=== PATIENT | female | born 1970 | race Two or more races ===

== ENCOUNTER 2019-10-31 09:00 | Observation (INO) | payer OTHER ==
[2019-10-31] MEDS ORDERED: SODIUM CHLORIDE 1,000 ML IV STA (09:06)
--- NOTE | 2019-10-31 09:09 | PDOC ---
History of Present Illness - General Chief Complaint: Chest Pain Stated Complaint: SYNCOPE, CHEST PAIN Time Seen by Provider: 10/31/19 09:06 History Source: Patient, Significant Other Exam Limitations: No Limitations - History of Present Illness Initial Comments: 10/31/19 09:08 HPI 49 YOF with no sig medical history presenting with syncope. Pt states at about 8AM while getting read to eat breakfast at diner with her family, she had acute onset of feeling flushed, chills, nausea, dizziness/lightheadedness, chest pain with subsequent syncopal episode, witnessed by her significant other. She was passed out x 3-4 minutes, where her eyes "popped out" and hands clenched up and generalized shaking. She also had urinary incontinence. she subsequently woke up, feeling nausea and had an episode of NBNB emesis, felt very cold and lightheaded, and blurry vision - since resolving. pt admits she has had similar presentations, with about 6X this year - has not followed up with primary doctor or specialist, due to the covid 19 pandemic and was afraid of going to hospitals. She had a prior episode several months ago where she had a witnessed syncopal event by her daughter with similar presentation. Denies fever, chills, chest pain, SOB, palpitation, N, V, D, abdominal pain, bladder and bowel problems, focal weakness/paresthesias, leg swelling/pain, rash. No sick contacts or travel. No new changes in medications - only takes MTV. She denies any particular triggers/stressors or exacerbating factors. Allergies: PCN Past Medical History/None PSH: cholecystectomy, C sections, tummy tuck, gastric bypass Social history: Lives with family. +occ ETOH and tobacco use. Meds: as documented in EMR Family history: noncontributory PMD: Dr Garcia, in the [place] Review of systems Constitutional: no fevers or chills. +weakness HEENT: +dizziness/lightheadedness, blurry vision. no headache. No congestion. No vision loss, eye pain, tinnitis, or hearing disturbances. CVS: +cp or syncope. Resp: no sob. No cough. Gastrointestinal: no abdominal pain, diarrhea. +nausea and vomiting. Genitourinary: no dysuria, frequency or urgency, hematuria. +urinary incontinence. MUSCULOSKELETAL: No joint pain and swelling. No neck or back pain. SKIN: no redness or skin changes, no discharge, no rash. No wounds. Hematologic: no easy bruising/bleeding. NEUROLOGIC: No headache, altered mental status. No focal weakness, numbness or tingling. +dizziness, +LOC Psych: no anxiety or depression Allergic/Immunologic: +pcn allergies All other systems reviewed and negative, or as documented in HPI. Physical exam General: awake and alert, NAD. HEENT: NCAT, PERRL, EOMI, clear conjunctiva, anicteric, moist mucus membranes, clear oropharynx, no oral lesions.. Neck: neck supple, FROM Resp: CTAB, normal and even respirations, no respiratory distress CVS: RRR, no murmurs, 2+ peripheral pulses throughout, no peripheral edema Abdomen: soft, NTND, no rebound or guarding. Back: nontender, normal inspection and ROM MSK: no edema, ESTRADA x4, ROM intact. No clubbing or cyanosis. normal bulk and tone. Extremities: no calf tenderness Neuro: alert, oriented appropriately; no focal neurologic deficits, speech clear. 5/5 prox and distal strength in all extremities, no pronator drift. 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 SILT in all extremities. no ataxia or gait imbalanace. Psych: Calm and cooperative Skin: warm and well perfused, cap refill <2 sec, normal color, no rash or skin discoloration. 10/31/19 09:10 10/31/19 11:00 10/31/19 11:02 Past History - Medical History Allergies/Adverse Reactions: Allergies Allergy/AdvReac Type Severity Reaction Status Date / Time Penicillins Allergy Verified 10/31/19 09:04 Home Medications: Ambulatory Orders Multivit-Min/FA/Lycopen/Lutein [Centrum Silver Tablet] 1 each PO DAILY 10/31/19 Valacyclovir HCl [Valtrex -] 500 mg PO ASDIR 10/31/19 *Physical Exam - Vital Signs Last Vital Signs Temp Pulse Resp BP Pulse Ox 98 F 78 17 112/78 99 10/31/19 09:00 10/31/19 11:13 10/31/19 11:13 10/31/19 11:13 10/31/19 11:13 Heart Score/ECG Review #1 ECG reviewed & interpreted by me at: 09:15 General ECG Interpretation: Sinus Rhythm, Normal Intervals Compared to previous ECG there are: Previous ECG unavail 10/31/19 09:19 EKG sinus bradycardia 59 bpm, no interval abnormalities, narrow QRS, ST and T wave segments and morphology normal. Nonspecific T wave abnormalities with T wave inversion in lead III, precordial leads. No reciprocal depressions. No ST elevations ED Treatment Course - LABORATORY CBC & Chemistry Diagram: 10/31/19 09:20 10/31/19 09:20 - ADDITIONAL ORDERS Additional order review: Laboratory Results 10/31/19 10/31/19 10/31/19 09:20 09:20 09:20 PT with INR INR PTT (Actin FS) Sodium 139 Potassium 4.5 Chloride 104 Carbon Dioxide 25 Anion Gap 10 BUN 18.0 Creatinine 0.6 Est GFR (CKD-EPI)AfAm 122.32 Est GFR (CKD-EPI)NonAf 105.54 Random Glucose 79 Calcium 9.0 Magnesium 2.1 Total Bilirubin 0.9 AST 31 ALT 24 Alkaline Phosphatase 68 Creatine Kinase 139 Troponin I < 0.03 Total Protein 7.2 Albumin 4.0 TSH 3.97 H 10/31/19 09:20 PT with INR 12.7 INR 1.14 PTT (Actin FS) 25.1 L Sodium Potassium Chloride Carbon Dioxide Anion Gap BUN Creatinine Est GFR (CKD-EPI)AfAm Est GFR (CKD-EPI)NonAf Random Glucose Calcium Magnesium Total Bilirubin AST ALT Alkaline Phosphatase Creatine Kinase Troponin I Total Protein Albumin TSH 10/31/19 09:20 RBC 4.64 MCV 96.0 MCHC 34.3 RDW 13.4 MPV 9.2 Neutrophils % 63.3 Lymphocytes % 25.4 Monocytes % 8.0 Eosinophils % 2.1 Basophils % 1.2 - RADIOLOGY Radiology Studies Ordered: Category Date Time Status HEAD CT WITHOUT CONTRAST [CT] Stat CT Scan 10/31/19 09:09 Completed CHEST X-RAY PORTABLE* [RAD] Stat Radiology 10/31/19 09:32 Completed - Medications Given in the ED: ED Medications Discontinued Medications Generic Name Dose Route Start Last Admin Trade Name Freq PRN Reason Stop Dose Admin Sodium Chloride 1,000 mls @ 1,000 mls/hr 10/31/19 09:06 10/31/19 09:30 Normal Saline - IV 10/31/19 10:05 1,000 mls/hr ASDIR STA Administration Ondansetron HCl 4 mg 10/31/19 09:23 10/31/19 09:32 Zofran Injection IVPUSH 10/31/19 09:24 4 mg ONCE ONE Administration Medical Decision Making - Medical Decision Making 10/31/19 09:14 Vital Signs Temp Pulse Resp BP Pulse Ox 98 F 70 18 111/67 99 10/31/19 09:00 10/31/19 09:00 10/31/19 09:00 10/31/19 09:00 10/31/19 09:00 DDx syncope: considered interval abnormalities including short QTC or long QT syndrome, WPW, conduction abnormality, [place], ACS, myocardial infarc tion/ischemia, arrhythmia, valvular heart disease such as , CHF/cardiomyopathy, PE, electrolyte disturbances, metabolic derangement, clinically significant bleeding, dehydration, seizure, ATHLETE MANAGER lesion, CVA, ICH, SAH. vasovagal episode. Neuro exam is nonfocal, not consistent with CVA or primary neurologic abnormality. Cardiovascular s/s: chest pain 20-50% of syncope of unclear etiology after extensive workup; high risk patients with syncope 30% mortality rate in the 1st year. [place] syncope rule is only 96% sensitive and 62% specific (criteria: abnormal EKG, SOB, Hct <30%, SBP <90, h/o CHF) pt does not exhibit high risk features labs and lytes wnl ecg with nsr, nonspecific t wave abnormalities, no elevation or depressions of st segments trop is neg x1, will trend at hour 3 given zofran for nausea, reassess IVF cxr is clear, no acute pathology ct head no acute pathology 10/31/19 11:01 pt had another episode of feeling flushed, dizzy, nauseous - near syncopal she is orthostatic, with BP 90s/60s when sitting up still symptomatic finishing her fluids neuro cs with Dr Bush cards cs with Dr Luciano admit for syncope, observation, tele, neuro and cards cs. Admit to Dr Vernon, s/o to [facility] Halina Capone 10/31/19 11:22 10/31/19 11:23 Discharge - Discharge Information Problems reviewed: Yes Clinical Impression/Diagnosis: Syncope Qualifiers: Syncope type: unspecified Qualified Code(s): R55 - Syncope and collapse Chest pain Qualifiers: Chest pain type: unspecified Qualified Code(s): R07.9 - Chest pain, unspecified Condition: Guarded - Admission Yes - Follow up/Referral Referrals: Susan Garcia [Primary Care Provider] - - Patient Discharge Instructions - Post Discharge Activity
[2019-10-31] MEDS ORDERED: ONDANSETRON 4 MG/2 ML VIAL IVPUSH ONE (09:23)
[2019-10-31] MEDS ORDERED: ONDANSETRON 4 MG/2 ML VIAL ONE (09:27)
[2019-10-31 09:46] LABS: BASO % 1.2 % (0-2.0); EOS % 2.1 % (0-4.5); HEMATOCRIT 44.5 % (32.4-45.2); HEMOGLOBIN 15.3 GM/dl (10.7-15.3); LYMPH % 25.4 % (8-40); MCH 32.9 pg (25.7-33.7); MCHC 34.3 g/dl (32.0-36.0); MEAN PLT VOLUME 9.2 fl (7.5-11.1); NEUT % 63.3 % (42.8-82.8); PLATELET COUNT 245 K/MM3 (134-434); RBC 4.64 M/mm3 (3.60-5.2); RDW 13.4 % (11.6-15.6); WHITE BLOOD COUNT 8.9 K/mm3 (4.0-10.8)
[2019-10-31 09:54] LABS: BILIRUBIN,TOTAL 0.9 mg/dl (0.2-1); CREATININE 0.6 mg/dl (0.55-1.3); MAGNESIUM 2.1 mg/dL (1.8-2.4); POTASSIUM 4.5 mmol/L (3.5-5.1); TOT PROT 7.2 g/dl (6.4-8.2)
[2019-10-31 09:59] LABS: ACTIVATED PTT 25.1 SECONDS (25.2-36.5)
[2019-10-31 10:03] LABS: INR 1.14 (0.82-1.09); PROTHROMBIN TIME (PATIENT) 12.7 SEC (10.2-13.0)
--- NOTE | 2019-10-31 10:12 | EKG ---
Test Reason : Blood Pressure : / mmHG Vent. Rate : 059 BPM Atrial Rate : 059 BPM P-R Int : 132 ms QRS Dur : 096 ms QT Int : 440 ms P-R-T Axes : -06 -03 -01 degrees QTc Int : 435 ms SINUS BRADYCARDIA CANNOT RULE OUT ANTERIOR INFARCT , AGE UNDETERMINED NONSPECIFIC T WAVE ABNORMALITY ABNORMAL ECG NO PREVIOUS ECGS AVAILABLE Confirmed by ELVIRA GUERRA MD ([id number]) on 10/31/2019 10:12:20 AM Referred By: TRENT CARRENO Confirmed By:ELVIRA GUERRA MD
--- NOTE | 2019-10-31 13:07 | HP ---
CHIEF COMPLAINT: dizziness, chest pain PCP: Dr Garcia, in the [place] HISTORY OF PRESENT ILLNESS: Karen Camp is a 49 yr old F, no significant medical condition, current smoker, presented to ED today after having syncopal episode in diner this morning. pt reports she felt light headed, c/o chest pain, she had acute onset of feeling flushed, chills, nausea, dizziness/lightheadedness, chest pain with subsequent syncopal episode, witnessed by her significant other. She was passed out x 3-4 minutes, where her eyes "popped out" and hands clenched up and generalized shaking. She also had urinary incontinence. she subsequently woke up, feeling nausea and had an episode of NBNB emesis, felt very cold and lig htheaded, and blurry vision - since resolving. pt admits she has had similar presentations, with about 6X this year - has not followed up with primary doctor or specialist, due to the covid 19 pandemic and was afraid of going to hospitals. She had a prior episode several months ago where she had a witnessed syncopal event by her daughter with similar presentation. Denies fever, chills, chest pain, SOB, palpitation, N, V, D, abdominal pain, bladder and bowel problems, focal weakness/paresthesias, leg swelling/pain, rash. No sick contacts or travel. No new changes in medications - only takes MTV. She denies any particular triggers/stressors or exacerbating factors ER course was notable for: (1)CT head unremarkable (2) Labs wnl (3) Recent Travel: PAST MEDICAL HISTORY: none PAST SURGICAL HISTORY:cholecystectomy, C sections, tummy tuck, gastric bypass Social History: Smoking:current smoker 1 pack every other day Alcohol:occasional Drugs: denies Allergies Penicillins Allergy (Verified 10/31/19 09:04) HOME MEDICATIONS: Home Medications Medication Instructions Recorded Multivit-Min/FA/Lycopen/Lutein 1 each PO DAILY 10/31/19 [Centrum Silver Tablet] Valacyclovir HCl [Valtrex -] 500 mg PO ASDIR 10/31/19 REVIEW OF SYSTEMS CONSTITUTIONAL: Absent: fever, chills, diaphoresis, generalized weakness, malaise, loss of appetite, weight change HEENT: Absent: rhinorrhea, nasal congestion, throat pain, throat swelling, difficulty swallowing, mouth swelling, ear pain, eye pain, visual changes CARDIOVASCULAR: +chest pain, +syncope Absent: palpitations, irregular heart rate, lightheadedness, peripheral edema RESPIRATORY: Absent: cough, shortness of breath, dyspnea with exertion, orthopnea, wheezing, stridor, hemoptysis GASTROINTESTINAL: +nausea, vomiting Absent: abdominal pain, abdominal distension, diarrhea, constipation, melena, hematochezia GENITOURINARY: urinary incontinence Absent: dysuria, frequency, urgency, hesitancy, hematuria, flank pain, genital pain MUSCULOSKELETAL: Absent: myalgia, arthralgia, joint swelling, back pain, neck pain SKIN: Absent: rash, itching, pallor HEMATOLOGIC/IMMUNOLOGIC: Absent: easy bleeding, easy bruising, lymphadenopathy, frequent infections ENDOCRINE: Absent: unexplained weight gain, unexplained weight loss, heat intolerance, cold intolerance NEUROLOGIC: Absent: headache, focal weakness or paresthesias, dizziness, unsteady gait, seizure, mental status changes, bladder or bowel incontinence PSYCHIATRIC: Absent: anxiety, depression, suicidal or homicidal ideation, hallucinations. PHYSICAL EXAMINATION Vital Signs - 24 hr 10/31/19 10/31/19 10/31/19 09:00 11:01 11:13 Temperature 98 F Pulse Rate 70 Pulse Rate [ 59 L 78 Left Apical] Respiratory 18 16 17 Rate Blood Pressure 111/67 Blood Pressure 97/69 112/78 [Left Arm] O2 Sat by Pulse 99 98 99 Oximetry (%) GENERAL: Awake, alert, and fully oriented, in no acute distress. HEAD: Normal with no signs of trauma. EYES: Pupils equal, round and reactive to light, extraocular movements intact, sclera anicteric, conjunctiva clear. No lid lag. EARS, NOSE, THROAT: Ears normal, nares patent, oropharynx clear without exudates. Moist mucous membranes. NECK: Normal range of motion, supple without lymphadenopathy, JVD, or masses. LUNGS: Breath sounds equal, clear to auscultation bilaterally. No wheezes, and no crackles. No accessory muscle use. HEART: Regular rate and rhythm, normal S1 and S2 without murmur, rub or gallop. ABDOMEN: Soft, nontender, not distended, normoactive bowel sounds, no guarding, no rebound, no masses. No hepatomegaly or splenomegaly. MUSCULOSKELETAL: Normal range of motion at all joints. No bony deformities or tenderness. No CVA tenderness. UPPER EXTREMITIES: 2+ pulses, warm, well-perfused. No cyanosis. No clubbing. No peripheral edema. LOWER EXTREMITIES: 2+ pulses, warm, well-perfused. No calf tenderness. No peripheral edema. NEUROLOGICAL: Cranial nerves II-XII intact. Normal speech. Normal gait. PSYCHIATRIC: Cooperative. Good eye contact. Appropriate mood and affect. SKIN: Warm, dry, normal turgor, no rashes or lesions noted, normal capillary refill. Laboratory Results - last 24 hr 10/31/19 10/31/19 10/31/19 09:20 09:20 09:20 WBC 8.9 RBC 4.64 Hgb 15.3 Hct 44.5 MCV 96.0 MCH 32.9 MCHC 34.3 RDW 13.4 Plt Count 245 MPV 9.2 Absolute Neuts (auto) 5.6 Neutrophils % 63.3 Lymphocytes % 25.4 Monocytes % 8.0 Eosinophils % 2.1 Basophils % 1.2 PT with INR 12.7 INR 1.14 PTT (Actin FS) 25.1 L Sodium 139 Potassium 4.5 Chloride 104 Carbon Dioxide 25 Anion Gap 10 BUN 18.0 Creatinine 0.6 Est GFR (CKD-EPI)AfAm 122.32 Est GFR (CKD-EPI)NonAf 105.54 Random Glucose 79 Calcium 9.0 Magnesium 2.1 Total Bilirubin 0.9 AST 31 ALT 24 Alkaline Phosphatase 68 Creatine Kinase Troponin I Total Protein 7.2 Albumin 4.0 TSH 3.97 H 10/31/19 10/31/19 09:20 09:20 WBC RBC Hgb Hct MCV MCH MCHC RDW Plt Count MPV Absolute Neuts (auto) Neutrophils % Lymphocytes % Monocytes % Eosinophils % Basophils % PT with INR INR PTT (Actin FS) Sodium Potassium Chloride Carbon Dioxide Anion Gap BUN Creatinine Est GFR (CKD-EPI)AfAm Est GFR (CKD-EPI)NonAf Random Glucose Calcium Magnesium Total Bilirubin AST ALT Alkaline Phosphatase Creatine Kinase 139 Troponin I < 0.03 Total Protein Albumin TSH ASSESSMENT/PLAN: Karen Camp is a 49 yr old F, no significant medical condition, current smoker admitted under observation for Admitting Diagnosis Syncope and collapse #Syncope and collapse- neuro vs cardio -tele obs -Neuro, cardio consult -Carotid US no stenosis -Echo -seizure precautions -will need EEG #Tobacco use -pt willing to try nicotine -smoking cessation counseled Covid swabbed in ED Full Code Family Medical History Family History: As Documented Problem List - Problem (1) Syncope Code(s): R55 - SYNCOPE AND COLLAPSE Qualifiers: Syncope type: unspecified Qualified Code(s): R55 - Syncope and collapse Visit type - Emergency Visit Emergency Visit: Yes ED Registration Date: 10/31/19 Care time: The patient presented to the Emergency Department on the above date and was hospitalized for further evaluation of their emergent condition. - New Patient This patient is new to me today: Yes Date on this admission: 10/31/19 - Critical Care Critical Care patient: No
[2019-10-31 14:27] VITALS: BMI 30.9
--- NOTE | 2019-10-31 19:27 | CON.CARD ---
Cardiology Consult (text) - Consultation Consultation Note: Coverage for Dr. Rula Krishnan Chief Complaint: Events noted, notes reviewed, witnessed syncopal episode with associated urinary incontinence, reported preceding chest pain and diaphoresis, multiple syncopal episodes this year History of Present Illness: Seen and examined on telemetry. Full consult dictated Medications: Current Medications Generic Name Dose Route Start Last Admin Trade Name Freq PRN Reason Stop Dose Admin Heparin Sodium (Porcine) 5,000 unit 10/31/19 22:00 Heparin - SQ BID NGOZI Multivitamins/Minerals/Vitamin C 1 tab 11/01/19 10:00 Tab-A-Vit - PO DAILY NGOZI Review of Systems Constitutional: denies Chills or Fever Respiratory: denies: Dyspnea Cardiovascular: As noted above Gastrointestinal: denies Nausea, Vomiting, Diarrhea, Constipation or Abdominal Discomfort Genitourinary: denies: Hematuria Musculoskeletal: No symptoms reported Vital Signs: Last Vital Signs Temp Pulse Resp BP Pulse Ox 98.4 F 65 18 101/56 L 96 10/31/19 17:00 10/31/19 17:00 10/31/19 17:00 10/31/19 17:00 10/31/19 17:00 Intake & Output 10/28/19 10/29/19 10/30/19 10/31/19 23:59 23:59 23:59 23:59 Intake Total 1000 Balance 1000 Weight 168 lb 12.8 oz Neck: Supple Negative JVD Respiratory: Clear to A&P Bilaterally Cardiovascular: S1 S2 Regular Rate and Rhythm No Murmurs Gastrointestinal: Soft Benign Normal Bowel Sounds Ext: Negative Edema Labs: Troponin, BNP 10/31/19 10/31/19 09:20 16:08 Troponin I < 0.03 < 0.03 CBC, BMP 10/31/19 09:20 10/31/19 09:20 Hepatic Panel Total Bilirubin 0.9 mg/dl (0.2-1) 10/31/19 09:20 AST 31 U/L (15-37) 10/31/19 09:20 ALT 24 U/L (13-61) 10/31/19 09:20 Alkaline Phosphatase 68 U/L (45-117) 10/31/19 09:20 Albumin 4.0 g/dl (3.4-5.0) 10/31/19 09:20 INR, PTT INR 1.14 (0.82-1.09) 10/31/19 09:20 Assessment/Plan ASSESSMENT: 1. Recurrent syncopal episodes, associated prodromal symptoms- neuro-cardio genic syncope (vasodepressor versus cardioinhibitory) probably componenet of vasovagal syncope in addition 2. Chest pain syndrome- unlikely to be coronary artery disease angina pectoris- suspect esophageal spasm which could be contributing to her presentation with vasovagal component 3. Reported abnormal EKG- related to chest lead positioning error 4. History of gastric bypass surgery 5. Tobacco abuse 6. Exogenous obesity PLAN: 1. Long discussion with the patient in reference to her clinical presentation and the above noted differential diagnosis of syncope- advised that outpatient Tilt table testing is recommended for further evaluation 2. Counselled preventative measures including liberalizing salt and fluid intake, utilization of compression stocking and initiation of moderate intensity aerobic exercise 3. Patient was strongly counselled smoking cessation 4. Echocardiography for evaluation of LV and valvular function 5. MPI study for evaluation of the above noted chest pain syndrome Sariah Luciano MD
--- NOTE | 2019-10-31 20:42 | CONS ---
DATE OF CONSULTATION: 10/31/2019 REQUESTING PHYSICIAN: Hospitalist service. CHIEF COMPLAINT: Evaluation of a syncopal episode. A 49-year-old female of descent of history with no significant past medical history other than recurrent syncopal episodes, who presented to [facility] with a recurrent syncopal episode while having breakfast. According to the patient, she was seated with her partner and had sudden onset of loss of consciousness with associated urinary incontinence. Patient's partner described generalized shakiness and subsequent loss of consciousness for a few minutes with the above-noted associated urinary incontinence. Prior to the above-noted episode, patient had reported chest discomfort described as sharp pain and subsequent transient diaphoresis. Patient had reported similar episodes earlier this year, but not as intense. Patient did not report any associated palpitations. Patient denies any chest discomfort with physical exertion. Patient denies any dyspnea, orthopnea, paroxysmal nocturnal dyspnea, or peripheral edema. Patient denies any history of hypertension/hypertensive cardiovascular disease, diabetes mellitus, or hypercholesterolemia. Patient is a smoker and admits to heavy caffeine intake. PAST MEDICAL HISTORY: Recurrent syncopal episodes. PAST SURGICAL HISTORY: Gastric bypass, cholecystectomy, section, and liposuction. SOCIAL HISTORY: A smoker. FAMILY HISTORY: No family history of premature coronary artery disease. ALLERGIES: PENICILLIN. MEDICAL THERAPY: None. REVIEW OF SYSTEMS: Head and Neck: Denies headache, photophobia, blurring of vision. Respiratory: No cough or sputum production. Cardiovascular: As noted above. Gastrointestinal: Reported nausea earlier today and vomiting. No diarrhea or constipation. Genitourinary: No symptoms reported. Musculoskeletal: No symptoms reported. PHYSICAL EXAMINATION: Vital Signs: Blood pressure is 101/56 mmHg. Pulse rate is 65 beats per minute. Head and Neck: Pupils equally reactive to light and accommodation. Extraocular muscles are intact. Anicteric sclerae. Negative JVD. No bruit appreciated. Chest: Clear to auscultation and percussion. Cardiovascular: S1 and S2 regular. No murmur, clicks, or gallops. Abdomen: Soft, benign. Normoactive bowel sounds. Extremities: Negative edema. Intact distal pulses. No calf tenderness . Electrocardiogram revealed sinus rhythm with nonspecific T-wave abnormality in lead V1 through V3, most likely related to error in lead positioning. Troponin-I levels were noted. CBC noted, within normal limits. BMP noted, within normal limits. ASSESSMENT: 1. Recurrent syncopal episodes, associated prodromal symptoms, neurocardiogenic syncope, vasodepressor versus inhibitory, probably component of vasovagal syncope in addition. 2. Chest pain syndrome, unlikely to be related to coronary artery disease, angina pectoris; suspect esophageal spasm which could be contributing to her presentation with vasovagal component. 3. Reported abnormal electrocardiogram related to chest lead positioning error. 4. History of gastric bypass surgery. 5. Tobacco abuse. 6. obesity. RECOMMENDATION: 1. Long discussion with the patient in reference to her clinical presentation and the above-noted differential diagnosis of syncope. Advised that outpatient tilt table testing is recommended for further evaluation. 2. Patient was counseled preventative measures including liberalizing salt and fluid intake, utilization of compression stockings, and initiation of moderate-intensity aerobic exercise. 3. Patient was strongly counseled smoking cessation. 4. Echocardiography for evaluation of left ventricular function and valvular function. 5. Myocardial perfusion imaging study for evaluation of the above-noted chest pain syndrome. Thank you for the kind referral. ALLI LAW M.D. [id number]
[2019-10-31] MEDS: HEPARIN NA (PORCINE) 5,000 UNITS/ML 1ML VIAL SQ SCH (21:28)
[2019-11-01 08:23] LABS: HEMOGLOBIN 13.9 GM/dl (10.7-15.3); MCH 32.1 pg (25.7-33.7); MCHC 33.8 g/dl (32.0-36.0); MEAN CELL VOLUME 95.1 fl (80-96); MEAN PLT VOLUME 9.7 fl (7.5-11.1); PLATELET COUNT 237 K/MM3 (134-434); RBC 4.31 M/mm3 (3.60-5.2); RDW 13.5 % (11.6-15.6)
[2019-11-01 08:49] LABS: ALBUMIN 3.3 g/dl (3.4-5.0); BILIRUBIN,TOTAL 0.7 mg/dl (0.2-1); CALCIUM 8.7 mg/dl (8.5-10); CREATININE 0.6 mg/dl (0.55-1.3); PHOSPHOROUS 3.3 mg/dl (2.5-4.9); POTASSIUM 4.1 mmol/L (3.5-5.1); TOT PROT 6.1 g/dl (6.4-8.2)
[2019-11-01] MEDS: HEPARIN NA (PORCINE) 5,000 UNITS/ML 1ML VIAL SQ SCH ×2 (09:25→21:39)
[2019-11-01] MEDS: MULTIVITAMINS (DAILY MVI) TABLET (FP) PO SCH (09:25)
[2019-11-01 09:33] LABS: CHOLESTEROL 137 mg/dl (50-200); HDL CHOLESTEROL 49 mg/dl (40-60); LDL CHOLESTEROL (ONLY DFH) 73 mg/dl (5-100); TRIGLYCERIDES 77 mg/dl (0-150)
--- NOTE | 2019-11-01 11:02 | PN ---
Physical Exam: SUBJECTIVE: Patient seen and examined OBJECTIVE: Vital Signs Period Temp Pulse Resp BP Sys/Vee Pulse Ox Last 24 Hr 97.6 F-98.4 F 54-78 17-18 90-112/54-78 95-99 GENERAL: The patient is awake, alert, and fully oriented, in no acute distress. HEAD: Normal with no signs of trauma. EYES: PERRL, extraocular movements intact, sclera anicteric, conjunctiva clear. No ptosis. ENT: Ears normal, nares patent, oropharynx clear without exudates, moist mucous membranes. NECK: Trachea midline, full range of motion, supple. LUNGS: Breath sounds equal, clear to auscultation bilaterally, no wheezes, no crackles, no accessory muscle use. HEART: Regular rate and rhythm, S1, S2 without murmur, rub or gallop. ABDOMEN: Soft, nontender, nondistended, normoactive bowel sounds, no guarding, no rebound, no hepatosplenomegaly, no masses. EXTREMITIES: 2+ pulses, warm, well-perfused, no edema. NEUROLOGICAL: Cranial nerves II through XII grossly intact. Normal speech, gait not observed. PSYCH: Normal mood, normal affect. SKIN: Warm, dry, normal turgor, no rashes or lesions noted Laboratory Results - last 24 hr 10/31/19 10/31/19 10/31/19 09:20 16:08 21:34 WBC RBC Hgb Hct MCV MCH MCHC RDW Plt Count MPV Sodium Potassium Chloride Carbon Dioxide Anion Gap BUN Creatinine Est GFR (CKD-EPI)AfAm Est GFR (CKD-EPI)NonAf Random Glucose Calcium Phosphorus Total Bilirubin AST ALT Alkaline Phosphatase Troponin I < 0.03 < 0.03 Total Protein Albumin Triglycerides Cholesterol Total LDL Cholesterol HDL Cholesterol TSH 3.97 H Urine HCG, Qual 11/01/19 11/01/19 11/01/19 06:00 06:00 08:04 WBC 7.0 RBC 4.31 Hgb 13.9 Hct 41.0 MCV 95.1 MCH 32.1 MCHC 33.8 RDW 13.5 Plt Count 237 MPV 9.7 Sodium 140 Potassium 4.1 Chloride 107 Carbon Dioxide 24 Anion Gap 9 BUN 12.0 Creatinine 0.6 Est GFR (CKD-EPI)AfAm 122.32 Est GFR (CKD-EPI)NonAf 105.54 Random Glucose 87 Calcium 8.7 Phosphorus 3.3 Total Bilirubin 0.7 AST 21 ALT 21 Alkaline Phosphatase 59 Troponin I Total Protein 6.1 L Albumin 3.3 L Triglycerides 77 Cholesterol 137 Total LDL Cholesterol 73 HDL Cholesterol 49 TSH Urine HCG, Qual 11/01/19 08:30 WBC RBC Hgb Hct MCV MCH MCHC RDW Plt Count MPV Sodium Potassium Chloride Carbon Dioxide Anion Gap BUN Creatinine Est GFR (CKD-EPI)AfAm Est GFR (CKD-EPI)NonAf Random Glucose Calcium Phosphorus Total Bilirubin AST ALT Alkaline Phosphatase Troponin I Total Protein Albumin Triglycerides Cholesterol Total LDL Cholesterol HDL Cholesterol TSH Urine HCG, Qual Negative Active Medications Generic Name Dose Route Start Last Admin Trade Name Freq PRN Reason Stop Dose Admin Heparin Sodium (Porcine) 5,000 unit 10/31/19 22:00 11/01/19 09:25 Heparin - SQ 5,000 unit BID NGOZI Administration Multivitamins/Minerals/Vitamin C 1 tab 11/01/19 10:00 11/01/19 09:25 Tab-A-Vit - PO 1 tab DAILY NGOZI Administration ASSESSMENT/PLAN: Problem List - Problems (1) Syncope Code(s): R55 - SYNCOPE AND COLLAPSE Qualifiers: Syncope type: unspecified Qualified Code(s): R55 - Syncope and collapse
--- NOTE | 2019-11-01 12:08 | CONSULT ---
Consult - text type - Consultation Consultation Note: NEUROLOGY CHIEF COMPLAINT: dizziness, chest pain PCP: Dr Garcia, in the [place] HISTORY OF PRESENT ILLNESS: Karen Camp is a 49 yr old F, no significant medical condition, current sm oker, presented to ED on day of admission after having syncopal episode in a diner this morning. Pt reports she felt light headed, c/o chest pain, she had acute onset of feeling flushed, chills, nausea, dizziness/lightheadedness, chest pain with subsequent syncopal episode, witnessed by her significant other. She was passed out x 3-4 minutes, where her eyes "popped out" and hands clenched up and generalized shaking. She also had urinary incontinence. she subsequently woke up, feeling nausea and had an episode of NBNB emesis, felt very cold and lightheaded, and blurry vision - since resolving. Pt admits she has had similar presentations, with about 6X this year - has not followed up with primary doctor or specialist, due to the covid 19 pandemic and was afraid of going to hospitals. She had a prior episode several months ago where she had a witnessed syncopal event by her daughter with similar presentation. Patient during ED presentation denies fever, chills, chest pain, SOB, palpitation, N, V, D, abdominal pain, bladder and bowel problems, focal weakness/paresthesias, leg swelling/pain, rash. No sick contacts or travel. No new changes in medications - only takes MTV. She denies any particular triggers/stressors or exacerbating factors. Head CT completed with no acute infarct. Carotid Doppler completed with no significant stenosis. Triglycerides 77, cholestrol 137, Total LDL 73, HDL 49. Recommendation for EEG. Patient wants to have complete workup prior to discharge. Will not start her on AEDs at this time and await EEG results, if abnormal epileptiform activity then can give Keppra 500mg twice daily. Recent Travel: PAST MEDICAL HISTORY: none PAST SURGICAL HISTORY:cholecystectomy, C sections, tummy tuck, gastric bypass Social History: Smoking:current smoker 1 pack every other day Alcohol:occasional Drugs: denies Family History: HTN Allergies Penicillins Allergy (Verified 10/31/19 09:04) HOME MEDICATIONS: Home Medications Medication Instructions Recorded Multivit-Min/FA/Lycopen/Lutein 1 each PO DAILY 10/31/19 [Centrum Silver Tablet] Valacyclovir HCl [Valtrex -] 500 mg PO ASDIR 10/31/19 Active Medications Heparin Sodium (Porcine) (Heparin -) 5,000 unit SQ BID [facility] Last Admin: 11/01/19 09:25 Dose: 5,000 unit Documented by: Multivitamins/Minerals/Vitamin C (Tab-A-Vit -) 1 tab PO DAILY [facility] Last Admin: 11/01/19 09:25 Dose: 1 tab Documented by: REVIEW OF SYSTEMS CONSTITUTIONAL: Absent: fever, chills, diaphoresis, generalized weakness, malaise, loss of appetite, weight change HEENT: Absent: rhinorrhea, nasal congestion, throat pain, throat swelling, difficulty swallowing, mouth swelling, ear pain, eye pain, visual changes CARDIOVASCULAR: +chest pain, +syncope Absent: palpitations, irregular heart rate, lightheadedness, peripheral edema RESPIRATORY: Absent: cough, shortness of breath, dyspnea with exertion, orthopnea, wheezing, stridor, hemoptysis GASTROINTESTINAL: +nausea, vomiting Absent: abdominal pain, abdominal distension, diarrhea, constipation, melena, hematochezia GENITOURINARY: urinary incontinence Absent: dysuria, frequency, urgency, hesitancy, hematuria, flank pain, genital pain MUSCULOSKELETAL: Absent: myalgia, arthralgia, joint swelling, back pain, neck pain SKIN: Absent: rash, itching, pallor HEMATOLOGIC/IMMUNOLOGIC: Absent: easy bleeding, easy bruising, lymphadenopathy, frequent infections ENDOCRINE: Absent: unexplained weight gain, unexplained weight loss, heat intolerance, cold intolerance NEUROLOGIC: Absent: headache, focal weakness or paresthesias, dizziness, unsteady gait, seizure, mental status changes, bladder or bowel incontinence PSYCHIATRIC: Absent: anxiety, depression, suicidal or homicidal ideation, hallucinations. PHYSICAL EXAMINATION Vital Signs Period Temp Pulse Resp BP Sys/Vee Pulse Ox Last 24 Hr 97.6 F-98.4 F 54-78 17-18 90-110/54-76 95-98 GENERAL: Awake, alert, and fully oriented, in no acute distress. HEAD: Normal with no signs of trauma. EYES: Pupils equal, round and reactive to light, extraocular movements intact, sclera anicteric, conjunctiva clear. No lid lag. EARS, NOSE, THROAT: Ears normal, nares patent, oropharynx clear without e xudates. Moist mucous membranes. NECK: Normal range of motion, supple without lymphadenopathy, JVD, or masses. LUNGS: Breath sounds equal, clear to auscultation bilaterally. No wheezes, and no crackles. No accessory muscle use. HEART: Regular rate and rhythm, normal S1 and S2 without murmur, rub or gallop. ABDOMEN: Soft, nontender, not distended, normoactive bowel sounds, no guarding, no rebound, no masses. No hepatomegaly or splenomegaly. MUSCULOSKELETAL: Normal range of motion at all joints. No bony deformities or tenderness. No CVA tenderness. UPPER EXTREMITIES: 2+ pulses, warm, well-perfused. No cyanosis. No clubbing. No peripheral edema. LOWER EXTREMITIES: 2+ pulses, warm, well-perfused. No calf tenderness. No peripheral edema. NEUROLOGICAL: Cranial nerves II-XII intact. Normal speech. Normal gait. PSYCHIATRIC: Cooperative. Good eye contact. Appropriate mood and affect. SKIN: Warm, dry, normal turgor, no rashes or lesions noted, normal capillary refill. CBCD WBC 7.0 K/mm3 (4.0-10.8) 11/01/19 08:04 RBC 4.31 M/mm3 (3.60-5.2) 11/01/19 08:04 Hgb 13.9 GM/dl (10.7-15.3) 11/01/19 08:04 Hct 41.0 % (32.4-45.2) 11/01/19 08:04 MCV 95.1 fl (80-96) 11/01/19 08:04 MCHC 33.8 g/dl (32.0-36.0) 11/01/19 08:04 RDW 13.5 % (11.6-15.6) 11/01/19 08:04 Plt Count 237 K/MM3 (134-434) 11/01/19 08:04 MPV 9.7 fl (7.5-11.1) 11/01/19 08:04 CMP Sodium 140 mmol/L (136-145) 11/01/19 06:00 Potassium 4.1 mmol/L (3.5-5.1) 11/01/19 06:00 Chloride 107 mmol/L (98-107) 11/01/19 06:00 Carbon Dioxide 24 mmol/L (21-32) 11/01/19 06:00 Anion Gap 9 MMOL/L (8-16) 11/01/19 06:00 BUN 12.0 mg/dl (7-18) 11/01/19 06:00 Creatinine 0.6 mg/dl (0.55-1.3) 11/01/19 06:00 Random Glucose 87 mg/dl (74-106) 11/01/19 06:00 Calcium 8.7 mg/dl (8.5-10) 11/01/19 06:00 Total Bilirubin 0.7 mg/dl (0.2-1) 11/01/19 06:00 AST 21 U/L (15-37) 11/01/19 06:00 ALT 21 U/L (13-61) 11/01/19 06:00 Alkaline Phosphatase 59 U/L (45-117) 11/01/19 06:00 Total Protein 6.1 g/dl (6.4-8.2) L 11/01/19 06:00 Albumin 3.3 g/dl (3.4-5.0) L 11/01/19 06:00 CARDIAC ENZYMES Creatine Kinase 139 U/L (26-192) 10/31/19 09:20 Troponin I < 0.03 ng/ml (0.00-0.05) 10/31/19 21:34 ASSESSMENT/PLAN: Karen Camp is a 49 yr old F, no significant medical condition, current smoker, presented to ED on day of admission after having syncopal episode in a diner this morning. Pt reports she felt light headed, c/o chest pain, she had acute onset of feeling flushed, chills, nausea, dizziness/lightheadedness, chest pain with subsequent syncopal episode, witnessed by her significant other. She was passed out x 3-4 minutes, where her eyes "popped out" and hands clenched up and generalized shaking. She also had urinary incontinence. she subsequently woke up, feeling nausea and had an episode of NBNB emesis, felt very cold and lightheaded, and blurry vision - since resolving. Pt admits she has had similar presentations, with about 6X this year - has not followed up with primary doctor or specialist, due to the covid 19 pandemic and was afraid of going to hospitals. She had a prior episode several months ago where she had a witnessed syncopal event by her daughter with similar presentation. Patient during ED presentation denies fever, chills, chest pain, SOB, palpitation, N, V, D, abdominal pain, bladder and bowel problems, focal weakness/paresthesias, leg swelling/pain, rash. No sick contacts or travel. No new changes in medications - only takes MTV. She denies any particular triggers/stressors or exacerbating factors. Head CT completed with no acute infarct. Carotid Doppler completed with no significant stenosis. Triglycerides 77, cholestrol 137, Total LDL 73, HDL 49. Recommendation for EEG at this time. Patient wants to have complete workup prior to discharge. Will not start her on AEDs at this time and await EEG results, if abnormal epileptiform activity then can give Keppra 500mg twice daily. Maintain adequate hydration. Monitor lytes. Follow up cardiac work up.
--- NOTE | 2019-11-01 12:27 | PN ---
Physical Exam: SUBJECTIVE: Patient seen and examined, pt denies chest pain, sob OBJECTIVE: Vital Signs Period Temp Pulse Resp BP Sys/Vee Pulse Ox Last 24 Hr 97.6 F-98.4 F 54-78 17-18 90-110/54-76 95-98 GENERAL: The patient is awake, alert, and fully oriented, in no acute distress. HEAD: Normal with no signs of trauma. EYES: PERRL, extraocular movements intact, sclera anicteric, conjunctiva clear. No ptosis. ENT: Ears normal, nares patent, oropharynx clear without exudates, moist mucous membranes. NECK: Trachea midline, full range of motion, supple. LUNGS: Breath sounds equal, clear to auscultation bilaterally, no wheezes, no crackles, no accessory muscle use. HEART: Regular rate and rhythm, S1, S2 without murmur, rub or gallop. ABDOMEN: Soft, nontender, nondistended, normoactive bowel sounds, no guarding, no rebound, no hepatosplenomegaly, no masses. EXTREMITIES: 2+ pulses, warm, well-perfused, no edema. NEUROLOGICAL: Cranial nerves II through XII grossly intact. Normal speech, gait not observed. PSYCH: Normal mood, normal affect. SKIN: Warm, dry, normal turgor, no rashes or lesions noted Laboratory Results - last 24 hr 10/31/19 10/31/19 11/01/19 16:08 21:34 06:00 WBC RBC Hgb Hct MCV MCH MCHC RDW Plt Count MPV Sodium 140 Potassium 4.1 Chloride 107 Carbon Dioxide 24 Anion Gap 9 BUN 12.0 Creatinine 0.6 Est GFR (CKD-EPI)AfAm 122.32 Est GFR (CKD-EPI)NonAf 105.54 Random Glucose 87 Calcium 8.7 Phosphorus 3.3 Total Bilirubin 0.7 AST 21 ALT 21 Alkaline Phosphatase 59 Troponin I < 0.03 < 0.03 Total Protein 6.1 L Albumin 3.3 L Triglycerides Cholesterol Total LDL Cholesterol HDL Cholesterol Urine HCG, Qual 11/01/19 11/01/19 11/01/19 06:00 08:04 08:30 WBC 7.0 RBC 4.31 Hgb 13.9 Hct 41.0 MCV 95.1 MCH 32.1 MCHC 33.8 RDW 13.5 Plt Count 237 MPV 9.7 Sodium Potassium Chloride Carbon Dioxide Anion Gap BUN Creatinine Est GFR (CKD-EPI)AfAm Est GFR (CKD-EPI)NonAf Random Glucose Calcium Phosphorus Total Bilirubin AST ALT Alkaline Phosphatase Troponin I Total Protein Albumin Triglycerides 77 Cholesterol 137 Total LDL Cholesterol 73 HDL Cholesterol 49 Urine HCG, Qual Negative Active Medications Generic Name Dose Route Start Last Admin Trade Name Freq PRN Reason Stop Dose Admin Heparin Sodium (Porcine) 5,000 unit 10/31/19 22:00 11/01/19 09:25 Heparin - SQ 5,000 unit BID NGOZI Administration Multivitamins/Minerals/Vitamin C 1 tab 11/01/19 10:00 11/01/19 09:25 Tab-A-Vit - PO 1 tab DAILY NGOZI Administration ASSESSMENT/PLAN: Karen Camp is a 49 yr old F, no significant medical condition, current smoker admitted under observation for Admitting Diagnosis Syncope and collapse #Syncope and collapse- neuro vs cardio -tele obs -Neuro note appreciated- EEG ordered -Cardio note appreciated, echo in AM -Carotid US no stenosis -Echo in AM -seizure precautions #Tobacco use -pt willing to try nicotine -smoking cessation counseled Covid swabbed in ED Full Code Problem List - Problems (1) Syncope Code(s): R55 - SYNCOPE AND COLLAPSE Qualifiers: Syncope type: unspecified Qualified Code(s): R55 - Syncope and collapse Visit type - Emergency Visit Emergency Visit: Yes ED Registration Date: 10/31/19 Care time: The patient presented to the Emergency Department on the above date and was hospitalized for further evaluation of their emergent condition. - New Patient This patient is new to me today: No - Critical Care Critical Care patient: No
[2019-11-02] MEDS: MULTIVITAMINS (DAILY MVI) TABLET (FP) PO SCH (09:45)
[2019-11-02] MEDS: HEPARIN NA (PORCINE) 5,000 UNITS/ML 1ML VIAL SQ SCH ×2 (09:45→21:28)
--- NOTE | 2019-11-02 11:57 | PN ---
Progress Note, Physician - Current Medication List Current Medications: Active Medications Heparin Sodium (Porcine) (Heparin -) 5,000 unit SQ BID [facility] Last Admin: 11/02/19 09:45 Dose: 5,000 unit Documented by: Multivitamins/Minerals/Vitamin C (Tab-A-Vit -) 1 tab PO DAILY [facility] Last Admin: 11/02/19 09:45 Dose: 1 tab Documented by: - Objective Vital Signs: Vital Signs Temperature 98.5 F 11/02/19 06:00 Pulse Rate 72 11/02/19 06:00 Respiratory Rate 18 11/02/19 07:27 Blood Pressure 118/82 11/02/19 06:00 O2 Sat by Pulse Oximetry (%) 94 L 11/02/19 07:27 Eyes: Yes: WNL, Conjunctiva Clear, EOM Intact HENT: Yes: WNL, Atraumatic, Normocephalic Neck: Yes: WNL, Supple, Trachea Midline Cardiovascular: Yes: WNL, Regular Rate and Rhythm Respiratory: Yes: WNL, Regular, CTA Bilaterally Gastrointestinal: Yes: WNL, Normal Bowel Sounds Genitourinary: Yes: WNL Musculoskeletal: Yes: WNL Extremities: Yes: WNL Edema: No Integumentary: Yes: WNL Neurological: Yes: WNL, Alert, Oriented ...Motor Strength: WNL Psychiatric: Yes: WNL Labs: CBC, BMP 11/01/19 08:04 11/01/19 06:00 INR, PTT INR 1.14 (0.82-1.09) 10/31/19 09:20 Assessment/Plan ASSESSMENT: 1. Recurrent syncopal episodes, associated prodromal symptoms- neuro- cardiogenic syncope (vasodepressor versus cardioinhibitory) probably componenet of vasovagal syncope in addition 2. Chest pain syndrome- unlikely to be coronary artery disease angina pectoris- suspect esophageal spasm which could be contributing to her presentation with vasovagal component 3. Reported abnormal EKG- related to chest lead positioning error 4. History of gastric bypass surgery 5. Tobacco abuse 6. Exogenous obesity 7. ECHO WNL MIBI negative for ischemia PLAN: 1. Outpatient Tilt table testing is recommended for further evaluation 2. Counselled preventative measures including liberalizing salt and fluid intake, utilization of compression stocking and initiation of moderate intensity aerobic exercise 3. Patient was strongly counselled smoking cessation
--- NOTE | 2019-11-02 15:22 | ECHO ---
Name: PARISA PINA Exam:Adult Echocardiogram Study Date: 11/02/2019 10:24 AM Age: 49 yrs Reason For Study: syncope Height: 62 in Weight: 162 lb BSA: 1.7 m2 MMode/2D Measurements & Calculations IVSd: 0.80 cm Ao root diam: 2.4 cm LVIDd: 3.6 cm LA dimension: 2.5 cm LVIDs: 2.7 cm ACS: 1.6 cm LVPWd: 1.3 cm LVPWs: 1.7 cm EDV(Teich): 55.2 ml ESV(Teich): 26.3 ml LVOT diam: 2.0 cm TAPSE: 2.1 cm Doppler Measurements & Calculations MV E max red: 63.7 cm/sec Ao V2 max: 107.5 cm/sec MV A max red: 55.3 cm/sec Ao max P.8 mmHg MV E/A: 1.2 MV dec time: 0.17 sec ALPHONSE(V,D): 1.9 cm2 LV V1 max P.5 mmHg TR max red: 195.5 cm/sec LV V1 max: 61.7 cm/sec TR max P.3 mmHg PA V2 max: 83.5 cm/sec Lat Peak E' Red: 9.7 cm/sec PA max P.8 mmHg Lat E/e': 6.6 Procedure A complete two-dimensional transthoracic echocardiogram was performed (2D, M-mode, Doppler and color flow Doppler). Left Ventricle The left ventricle is normal in size. Left ventricular systolic function is normal. Ejection Fraction = 60- 65%. No regional wall motion abnormalities noted. Right Ventricle The right ventricle is normal size. The right ventricular systolic function is normal. Atria The left atrial size is normal. Right atrial size is normal. Mitral Valve The mitral valve is normal in structure and function. There is trace mitral regurgitation. Tricuspid Valve The tricuspid valve is normal in structure and function. There is mild tricuspid regurgitation. Right ventricular systolic pressure is normal. Aortic Valve The aortic valve is normal in structure and function. No aortic regurgitation is present. Pulmonic Valve The pulmonic valve is not well visualized. Great Vessels The aortic root is normal size. Pericardium/Pleura There is no pericardial effusion. Interpretation Summary The left ventricle is normal in size. Left ventricular systolic function is normal. No regional wall motion abnormalities noted. Ejection Fraction = 60-65%. There is trace mitral regurgitation. There is mild tricuspid regurgitation. Right ventricular systolic pressure is normal. There is no pericardial effusion. Ryan Milton MD 11/02/2019 03:21 PM
--- NOTE | 2019-11-02 16:54 | PN ---
Physical Exam: SUBJECTIVE: Patient seen and examined. Feeling well, no further episodes. OBJECTIVE: Vital Signs Period Temp Pulse Resp BP Sys/Vee Pulse Ox Last 24 Hr 98.3 F-98.5 F 64-77 18-18 118-125/72-96 94-99 GENERAL: The patient is awake, alert, and fully oriented, in no acute distress. HEAD: Normal with no signs of trauma. EYES: PERRL, extraocular movements intact, sclera anicteric, conjunctiva clear. No ptosis. ENT: Ears normal, nares patent, oropharynx clear without exudates, moist mucous membranes. NECK: Trachea midline, full range of motion, supple. LUNGS: Breath sounds equal, clear to auscultation bilaterally, no wheezes, no crackles, no accessory muscle use. HEART: Regular rate and rhythm, S1, S2 without murmur, rub or gallop. ABDOMEN: Soft, nontender, nondistended, normoactive bowel sounds, no guarding, no rebound, no hepatosplenomegaly, no masses. EXTREMITIES: 2+ pulses, warm, well-perfused, no edema. NEUROLOGICAL: Cranial nerves II through XII grossly intact. Normal speech, gait not observed. PSYCH: Normal mood, normal affect. SKIN: Warm, dry, normal turgor, no rashes or lesions noted Active Medications Generic Name Dose Route Start Last Admin Trade Name Davidq PRN Reason Stop Dose Admin Heparin Sodium (Porcine) 5,000 unit 10/31/19 22:00 11/02/19 09:45 Heparin - SQ 5,000 unit BID NGOZI Administration Multivitamins/Minerals/Vitamin C 1 tab 11/01/19 10:00 11/02/19 09:45 Tab-A-Vit - PO 1 tab DAILY NGOZI Administration ASSESSMENT/PLAN: 49-yr-old female, no PMH, admitted with syncope #Syncope and collapse -Of note, 6th episode this year, associated with urinary incontinence -HCT and carotid dopplers unremarkable -To [facility] for echo and stress today -EEG pending -Start Keppra 500mg bid if EEG positive #Active smoker -Smoking cessation counseling #Ppx -Early ambulation -Sqh -COVID neg Dispo: Observation. Full Code Problem List - Problems (1) Syncope Problems reviewed: Yes Code(s): R55 - SYNCOPE AND COLLAPSE Qualifiers: Syncope type: unspecified Qualified Code(s): R55 - Syncope and collapse Visit type - Emergency Visit Emergency Visit: Yes ED Registration Date: 10/31/19 Care time: The patient presented to the Emergency Department on the above date and was hospitalized for further evaluation of their emergent condition. - New Patient This patient is new to me today: Yes Date on this admission: 11/22/19 - Critical Care Critical Care patient: No - Discharge Referral Referred to [facility] Med P.C[facility] No
[2019-11-03 06:42] VITALS: BP 115/64; PULSE 73; TEMP 98.5
--- NOTE | 2019-11-03 08:52 | DS ---
Physical Exam: SUBJECTIVE: Patient seen and examined. Feeling well. eager to go home. OBJECTIVE: Vital Signs Period Temp Pulse Resp BP Sys/Vee Pulse Ox Last 24 Hr 98.0 F-98.5 F 67-77 16-19 101-125/64-96 96-99 PHYSICAL EXAM GENERAL: The patient is awake, alert, and fully oriented, in no acute distress. HEAD: Normal with no signs of trauma. EYES: PERRL, extraocular movements intact, sclera anicteric, conjunctiva clear. ENT: Ears normal, nares patent, oropharynx clear without exudates, moist mucous membranes. NECK: Trachea midline, full range of motion, supple. LUNGS: Breath sounds equal, clear to auscultation bilaterally, no wheezes, no crackles, no accessory muscle use. HEART: Regular rate and rhythm, S1, S2 without murmur, rub or gallop. ABDOMEN: Soft, nontender, nondistended, normoactive bowel sounds, no guarding, no rebound, no hepatosplenomegaly, no masses. EXTREMITIES: 2+ pulses, warm, well-perfused, no edema. NEUROLOGICAL: Cranial nerves II through XII grossly intact. Normal speech, gait not observed. PSYCH: Normal mood, normal affect. SKIN: Warm, dry, normal turgor, no rashes or lesions noted. LABS CBCD WBC 7.0 K/mm3 (4.0-10.8) 11/01/19 08:04 RBC 4.31 M/mm3 (3.60-5.2) 11/01/19 08:04 Hgb 13.9 GM/dl (10.7-15.3) 11/01/19 08:04 Hct 41.0 % (32.4-45.2) 11/01/19 08:04 MCV 95.1 fl (80-96) 11/01/19 08:04 MCHC 33.8 g/dl (32.0-36.0) 11/01/19 08:04 RDW 13.5 % (11.6-15.6) 11/01/19 08:04 Plt Count 237 K/MM3 (134-434) 11/01/19 08:04 MPV 9.7 fl (7.5-11.1) 11/01/19 08:04 CMP Sodium 140 mmol/L (136-145) 11/01/19 06:00 Potassium 4.1 mmol/L (3.5-5.1) 11/01/19 06:00 Chloride 107 mmol/L (98-107) 11/01/19 06:00 Carbon Dioxide 24 mmol/L (21-32) 11/01/19 06:00 Anion Gap 9 MMOL/L (8-16) 11/01/19 06:00 BUN 12.0 mg/dl (7-18) 11/01/19 06:00 Creatinine 0.6 mg/dl (0.55-1.3) 11/01/19 06:00 Calcium 8.7 mg/dl (8.5-10) 11/01/19 06:00 Total Bilirubin 0.7 mg/dl (0.2-1) 11/01/19 06:00 AST 21 U/L (15-37) 11/01/19 06:00 ALT 21 U/L (13-61) 11/01/19 06:00 Alkaline Phosphatase 59 U/L (45-117) 11/01/19 06:00 Total Protein 6.1 g/dl (6.4-8.2) L 11/01/19 06:00 Albumin 3.3 g/dl (3.4-5.0) L 11/01/19 06:00 HOSPITAL COURSE: This is a healthy 49-year-old female smoker placed in observation on 10/30 following a ?syncopal episode with urinary incontinence, her 6th such episode this year. HCT was negative for acute intracranial process. The patient was not found to have any electrolyte abnormalities. In consultation with cardiology, she underwent cardiac stress testing and an echocardiogram, both of which were unremarkable. She was seen by neurology who recommended an EEG, which she will have as an outpatient at a scheduled appointment tomorrow. She did not have any further episodes while under observation. Today she is feeling well and ambulating without difficulty. Follow up instructions and return precautions were reviewed with the patient. Date of Admission:10/31/19 Date of Discharge: 11/03/19 Minutes to complete discharge: 35 Discharge Summary Problems reviewed: Yes Reason For Visit: CHEST PAIN Current Active Problems Chest pain (Acute) Syncope (Acute) Condition: Improved - Instructions Diet, Activity, Other Instructions: -There are no changes to your medications at this time. -Your stress test and echocardiogram were normal. -The EEG center at [facility] will reach out to you today for an appointment time 11/03. This test is necessary to evaluate for possible seizure disorder. The phone number for the department is [phone]. -Return here for any new or concerning symptoms. Referrals: Riccadro Bush MD [Staff Physician] - 1 Week (Neurology - please call for an appointment) Susan Garcia [Primary Care Provider] - Disposition: HOME - Home Medications Comprehensive Discharge Medication List: Ambulatory Orders Multivit-Min/FA/Lycopen/Lutein [Centrum Silver Tablet] 1 each PO DAILY 10/31/19 Valacyclovir HCl [Valtrex -] 500 mg PO ASDIR 10/31/19 This patient is new to me today: No Emergency Visit: Yes ED Registration Date: 10/31/19 Care time: The patient presented to the Emergency Department on the above date and was hospitalized for further evaluation of their emergent condition. Critical Care patient: No - Discharge Referral Referred to [facility] No
[2019-11-03] MEDS: HEPARIN NA (PORCINE) 5,000 UNITS/ML 1ML VIAL SQ SCH (09:47)
[2019-11-03] MEDS: MULTIVITAMINS (DAILY MVI) TABLET (FP) PO SCH (09:49)
--- NOTE | 2019-11-03 10:30 | PN ---
Progress Note, Physician - Current Medication List Current Medications: Active Medications Heparin Sodium (Porcine) (Heparin -) 5,000 unit SQ BID [facility] Last Admin: 11/03/19 09:47 Dose: 5,000 unit Documented by: Multivitamins/Minerals/Vitamin C (Tab-A-Vit -) 1 tab PO DAILY [facility] Last Admin: 11/03/19 09:49 Dose: 1 tab Documented by: - Objective Vital Signs: Vital Signs Temperature 98.5 F 11/03/19 06:00 Pulse Rate 73 11/03/19 06:00 Respiratory Rate 16 11/03/19 08:28 Blood Pressure 115/64 11/03/19 06:00 O2 Sat by Pulse Oximetry (%) 99 11/03/19 08:28 Eyes: Yes: WNL, Conjunctiva Clear, EOM Intact HENT: Yes: WNL, Atraumatic, Normocephalic Neck: Yes: WNL, Supple, Trachea Midline Cardiovascular: Yes: WNL, Regular Rate and Rhythm Respiratory: Yes: WNL, Regular, CTA Bilaterally Gastrointestinal: Yes: WNL, Normal Bowel Sounds Genitourinary: Yes: WNL Musculoskeletal: Yes: WNL Extremities: Yes: WNL Edema: No Integumentary: Yes: WNL Neurological: Yes: WNL, Alert, Oriented ...Motor Strength: WNL Psychiatric: Yes: WNL Labs: CBC, BMP 11/01/19 08:04 11/01/19 06:00 INR, PTT INR 1.14 (0.82-1.09) 10/31/19 09:20 Assessment/Plan ASSESSMENT: 1. Recurrent syncopal episodes, associated prodromal symptoms- neuro- cardiogenic syncope (vasodepressor versus cardioinhibitory) probably componenet of vasovagal syncope in addition 2. Chest pain syndrome- unlikely to be coronary artery disease angina pectoris- suspect esophageal spasm which could be contributing to her presentation with vasovagal component 3. Reported abnormal EKG- related to chest lead positioning error 4. History of gastric bypass surgery 5. Tobacco abuse 6. Exogenous obesity 7. ECHO WNL MIBI negative for ischemia PLAN: 1. Outpatient Tilt table testing is recommended for further evaluation 2. Counselled preventative measures including liberalizing salt and fluid intake, utilization of compression stocking and initiation of moderate intensity aerobic exercise 3. Patient was strongly counselled smoking cessation
--- NOTE | 2019-11-17 15:53 | HOSP ---
Physical Examination Vital Signs: Vital Signs Temperature 98.5 F 11/03/19 06:00 Pulse Rate 73 11/03/19 06:00 Respiratory Rate 16 11/03/19 08:28 Blood Pressure 115/64 11/03/19 06:00 O2 Sat by Pulse Oximetry (%) 99 11/03/19 08:28 Labs: CBC, BMP 11/01/19 08:04 11/01/19 06:00 Hospitalist Encounter Assessment: Ms. Camp has been calling me at home (unclear how she has my phone number) requesting her EEG results. I informed her that the study was normal, but that she should follow up with neurology as an outpatient for further workup and advice. I provided her with the contact information with Dr. Bush, to whom she was referred on discharge. She agrees to make an appointment today. She does not have any other questions at this time.
== END 2019-11-03 10:30 | disposition home or self-care (01) ==
LOC: FER 09:00 → FM/S 11:03 → UNDOADMOB 13:20 → FM/S 13:20 → OBSVTOIN 11-02 08:48 → INTOOBSV 11-02 08:48
PROVIDERS: ADMIT Student in an Organized Health Care Education/Training Program; ATTEND Registered Nurse Emergency
PROC: 3E023GC Introduction of Other Therapeutic Substance into Muscle, Percutaneous Approach (ICD-10-PCS; principal; 2019-10-31)
PROC: 3E033GC Introduction of Other Therapeutic Substance into Peripheral Vein, Percutaneous Approach (ICD-10-PCS; 2019-10-31)
PROC: 3E0337Z Introduction of Electrolytic and Water Balance Substance into Peripheral Vein, Percutaneous Approach (ICD-10-PCS; 2019-10-31)
DX: Z88.0 Allergy status to penicillin (principal); F17.210 Nicotine dependence, cigarettes, uncomplicated; E66.09 Other obesity due to excess calories; Z68.30 Body mass index [BMI] 30.0-30.9, adult; Z29.9 Encounter for prophylactic measures, unspecified; R55 Syncope and collapse
CPT/HCPCS: 36415; 70450-TC; 71045-TC-FY; 78452-TC; 80053; 80061; 82550; 83735; 84100; 84443; 84484; 84703; 85025; 85027; 85610; 85730; 93005; 93017; 93306-TC; 93880-TC; 99285-25; A9502; G0378; J1644; U0003